=== PATIENT | female | born 1975 | race Caucasian/White ===

== ENCOUNTER 2016-10-18 18:56 | Emergency (ER) | payer OTHER ==
[~2016-10-18 18:56] MED LIST: ALBUTEROL S2 MG/5 ML PO; ALBUTEROL0.83 MG/ML INH; ALBUTEROL17 GM; COMBIVENT INH14.7 GM; FLEXERIL10 MG PO; IBUPROFEN200 M1 PO; NO MEDICATIONS; NORCO 5/325 TAB1 TAB PO; PERCOCET 5/3251 TAB PO; PREDNISONE10 MG PO; PROVERA10 MG PO; SYNTHROID125 MC1 PO; VICODIN 5/500 T1 TAB PO; ZYRTEC10 M3 PO
[2016-10-18] MEDS ORDERED: COZAAR50 M1 PO (19:38)
[2016-10-18] MEDS ORDERED: AMITRIPTYLINE H25 M1 PO (19:40)
[2016-10-18] MEDS ORDERED: IPRATROPIU0.2 MG/1 M INH (19:41)
[2016-10-18] MEDS ORDERED: ULTRAM50 M1 PO (20:18)
[2016-10-18] MEDS ORDERED: XANAX0.5 M1 PO (20:18)
[2016-10-18] MEDS ORDERED: CYCLOBENZAPRINE10 M1 PO (20:18)
[2016-10-18] MEDS ORDERED: BENADRYL25 M3 PO (20:19)
[2016-10-18] MEDS ORDERED: HYDROCODON-ACE1 EA16 PO (20:19)
[2016-10-18] MEDS ORDERED: GLUCOPHAGE1000 M1 PO (20:20)
[2016-10-18] MEDS ORDERED: SYMBICORT 160-1 PUFF INH (20:21)
[2016-10-18] MEDS ORDERED: CYCLOBENZAPRINE5 M1 PO (21:25)
[2016-10-18] MEDS ORDERED: NORCO 5-325 TA1 EACH PO (21:25)
== END 2016-10-18 21:39 ==
LOC: EDMED 18:56
DX: S16.1XXA Strain of muscle, fascia and tendon at neck level, initial encounter (principal); M54.5 Low back pain; J45.909 Unspecified asthma, uncomplicated; F17.210 Nicotine dependence, cigarettes, uncomplicated; Z79.51 Long term (current) use of inhaled steroids; Z79.899 Other long term (current) drug therapy; V49.40XA Driver injured in collision with unspecified motor vehicles in traffic accident, initial encounter; Y92.410 Unspecified street and highway as the place of occurrence of the external cause